=== PATIENT | female | born 1990 | race African-American/Black ===

== ENCOUNTER 2016-10-06 17:15 | Emergency (ER) | payer OTHER ==
[~2016-10-06] VITALS: Ht 165.1 cm; Wt 61.2 kg
[2016-10-06 17:35] VITALS: BP 120/70
[2016-10-06] MEDS ORDERED: HYDR200T PO (17:51)
[2016-10-06] MEDS ORDERED: MYCO250C PO (17:52)
--- NOTE | 2016-10-06 18:36 | PHYS DOC ---
Past Medical History Past Medical History: Other Additional Past Medical Histor: Lupus. Past Surgical History: No Surgical History Alcohol Use: Occasionally Drug Use: None Adult General Chief Complaint Chief Complaint: TOE PROBLEM HPI HPI Patient is a 26 year old female who presents with right second toe pain that began a couple days ago. Patient denies any trauma. Review of Systems Review of Systems Constitutional: Denies fever or chills [] Eyes: Denies change in visual acuity, redness, or eye pain [] Musculoskeletal: Right second toe pain Integument: Denies rash or skin lesions [] Neurologic: Denies headache, focal weakness or sensory changes [] Endocrine: Denies polyuria or polydipsia [] Allergies Allergies Allergies Coded Allergies Type Severity Reaction Last Updated Verified No Known Drug Allergies 10/06/16 No Physical Exam Physical Exam Constitutional: Well developed, well nourished, no acute distress, non-toxic appearance. [] HENT: Normocephalic, atraumatic, bilateral external ears normal, oropharynx moist, no oral exudates, nose normal. [] Skin: Warm, dry, no erythema, no rash. [] Back: No tenderness, no CVA tenderness. [] Extremities: Right second toe with no obvious deformity. No edema and no ecchymosis. No tenderness on exam. Full range of motion to the right foot and toes. +2 right pedal pulse. Cap refill less than 2 seconds the right lower extremity. Sensation intact to the right lower extremity. Neurologic: Alert and oriented X 3, normal motor function, normal sensory function, no focal deficits noted. [] Psychologic: Affect normal, judgement normal, mood normal. [] Current Patient Data Vital Signs Vital Signs Date Time Temp Pulse Resp B/P (MAP) Pulse Ox O2 Delivery O2 Flow Rate FiO2 10/06/16 17:35 98.2 87 16 100 Room Air 98.2 EKG EKG [] Radiology/Procedures Radiology/Procedures [] Course & Med Decision Making Course & Med Decision Making Pertinent Labs and Imaging studies reviewed. (See chart for details) Patient is in the ED with right second toe pain with no known injury. X-rays of the right foot interpreted by Dr. Grewal 3 views were negative for any acute findings. Discharged with instructions to ice and elevate the extremity. Take Tylenol Motrin for pain. Follow-up with orthopedic doctor in 1-2 weeks as needed. Dragon Disclaimer Dragon Disclaimer This electronic medical record was generated, in whole or in part, using a voice recognition dictation system. Departure Departure Impression: Primary Impression: Toe pain, right Disposition: 01 HOME, SELF-CARE Condition: STABLE Referrals: UNKNOWN PCP NAME (PCP) JACIEL YOUNG II, MD Follow-up in one week Patient Instructions: Musculoskeletal Pain Additional Instructions: You were seen for musculoskeletal pain of the right toe. Ice and elevate the extremity. Take Tylenol/ Motrin for pain. Follow-up with the provided orthopedic doctor in one week if pain continues. BONNIE GARCIA POWER PLANT MANAGER Oct 06, 2016 18:36
--- NOTE | 2016-10-07 08:48 | RAD ---
Right foot, 3 views, 10/06/2016: History: Foot pain No fracture or dislocation is identified. The soft tissues are unremarkable. IMPRESSION: No acute right foot abnormality is detected.
== END 2016-10-06 18:51 | disposition home or self-care (01) ==
LOC: ER 17:15
DX: M79.674 Pain in right toe(s) (principal); M32.9 Systemic lupus erythematosus, unspecified
CPT/HCPCS: 73630; 99284

== ENCOUNTER 2016-11-14 06:48 | Emergency (ER) | payer OTHER ==
[~2016-11-14] VITALS: Ht 162.6 cm; Wt 61.2 kg
[2016-11-14 06:48] VITALS: BP 142/87
[~2016-11-14 06:48] MED LIST: HYDR200T PO; MYCO250C PO
[2016-11-14] MEDS ORDERED: AMOX875T PO (07:32)
[2016-11-14] MEDS ORDERED: BENZ100C PO (07:33)
--- NOTE | 2016-11-14 07:33 | PHYS DOC ---
Past Medical History Past Medical History: Other Additional Past Medical Histor: Lupus. Past Surgical History: No Surgical History Alcohol Use: None Drug Use: None Adult General Chief Complaint Chief Complaint: SORE THROAT HPI HPI Patient is a 26 year old female with no significant medical history who presents with a sore throat and a cough 4 days, and bilateral ear pain since yesterday. Patient denies any fever. Review of Systems Review of Systems Constitutional: See history of present illness Eyes: Denies change in visual acuity, redness, or eye pain [] HENT: sore throat [] Respiratory: cough Cardiovascular: No additional information not addressed in HPI [] GI: Denies abdominal pain, nausea, vomiting, bloody stools or diarrhea [] : Denies dysuria or hematuria [] Musculoskeletal: Denies back pain or joint pain [] Integument: Denies rash or skin lesions [] Neurologic: Denies headache, focal weakness or sensory changes [] Endocrine: Denies polyuria or polydipsia [] Allergies Allergies Allergies Coded Allergies Type Severity Reaction Last Updated Verified No Known Drug Allergies 10/06/16 No Physical Exam Physical Exam Constitutional: Well developed, well nourished, no acute distress, non-toxic appearance. [] HENT: Normocephalic, atraumatic, bilateral external ears normal, oropharynx moist, no oral exudates, nose normal. [] Bilateral ear canals are impacted with cerumen, both TMs can be slightly visualized and they appear very erythematous. Posterior pharynx is injected.. Eyes: PERRLA, EOMI, conjunctiva normal, no discharge. [] Neck: Normal range of motion, no tenderness, supple, no stridor. [] Cardiovascular:Heart rate regular rhythm, no murmur [] Lungs & Thorax: Bilateral breath sounds clear to auscultation [] Abdomen: Bowel sounds normal, soft, no tenderness, no masses, no pulsatile masses. [] Skin: Warm, dry, no erythema, no rash. [] Back: No tenderness, no CVA tenderness. [] Extremities: No tenderness, no cyanosis, no clubbing, ROM intact, no edema. [] Neurologic: Alert and oriented X 3, normal motor function, normal sensory function, no focal deficits noted. [] Psychologic: Affect normal, judgement normal, mood normal. [] Current Patient Data Vital Signs Vital Signs Date Time Temp Pulse Resp B/P (MAP) Pulse Ox O2 Delivery O2 Flow Rate FiO2 11/14/16 06:48 98.1 93 16 99 Room Air 98.1 EKG EKG [] Radiology/Procedures Radiology/Procedures [] Course & Med Decision Making Course & Med Decision Making Pertinent Labs and Imaging studies reviewed. (See chart for details) Patient has bilateral otitis media, cough and pharyngitis. She was discharged with amoxicillin. She is also discharged with Tessalon Perles. She also has cerumen impaction, discharged with Debrox. Tylenol Motrin for pain or fever. Follow-up with PCP in one to 2 weeks. Dragon Disclaimer Dragon Disclaimer This electronic medical record was generated, in whole or in part, using a voice recognition dictation system. Departure Departure Impression: Primary Impression: Otitis media Additional Impressions: Cough Pharyngitis, acute Impacted cerumen of both ears Disposition: HOME, SELF-CARE Condition: STABLE Referrals: UNKNOWN PCP NAME (PCP) follow up with your doctor in one week Patient Instructions: Cerumen Impaction-SportsMed, Cough, Adult, Otitis Media, Adult, Viral and Bacterial Pharyngitis Additional Instructions: You were seen for bilateral ear infections, coughing, and a sore throat. Please complete your antibiotics. You also have earwax in both the ears. Please buy [id number] Debrox and use it to clear your ears. Take Tylenol every 4 hours and Motrin every 6 hours as needed for pain. Follow-up with your doctor in 1-2 weeks. Scripts Benzonatate (TESSALON PERLE) 100 Mg Capsule 1 CAP PO TID, #30 CAP Prov: BONNIE GARCIA APRN 11/14/16 Amoxicillin (AMOXICILLIN) 875 Mg Tablet 1 TAB PO BID, #20 TAB Prov: BONNIE GARCIA APRN 11/14/16 Problem Qualifiers Primary Impression: Otitis media Otitis media type: other nonsuppurative Chronicity: acute Laterality: bilateral Recurrence: not specified as recurrent Qualified Codes: H65.193 - Other acute nonsuppurative otitis media, bilateral Additional Impressions: Pharyngitis, acute Pharyngitis/tonsillitis etiology: unspecified etiology Qualified Codes: J02.9 - Acute pharyngitis, unspecified BONNIE GARCIA CAR RENTAL SERVICE ATTENDANT Nov 14, 2016 07:33
== END 2016-11-14 07:41 | disposition home or self-care (01) ==
LOC: ER 06:48
DX: H65.193 Other acute nonsuppurative otitis media, bilateral (principal); J02.9 Acute pharyngitis, unspecified; H61.23 Impacted cerumen, bilateral; M32.9 Systemic lupus erythematosus, unspecified
CPT/HCPCS: 99283

== ENCOUNTER 2016-12-02 19:21 | Emergency (ER) | payer OTHER ==
[~2016-12-02] VITALS: Ht 162.6 cm; Wt 61.2 kg
[~2016-12-02 19:21] MED LIST changes: +AMOX875T PO; +BENZ100C PO
[2016-12-02 19:40] VITALS: BP 146/85
[2016-12-02] MEDS ORDERED: FLUC150T PO (19:58)
[2016-12-02] MEDS ORDERED: BENZ100C PO (19:58)
[2016-12-02] MEDS ORDERED: AMOX1TAB61 PO (19:58)
--- NOTE | 2016-12-02 19:58 | PHYS DOC ---
Past Medical History Past Medical History: Other Additional Past Medical Histor: Lupus. Past Surgical History: No Surgical History Alcohol Use: None Drug Use: None Adult General Chief Complaint Chief Complaint: SORE THROAT HPI HPI Patient is a 26 year old female presents to the emergency department stating that she was seen here on 11/14/16. She was diagnosed with the ear infection as well as pharyngitis. Patient states she has taken the amoxicillin as prescribed and he completed at approximately the 20th. She states that she was feeling better however she has started to have cough congestion and maxillary sinus pressure. She denies fever, chills or any nausea vomiting. She does state that she's had a cough. Review of Systems Review of Systems Constitutional: Denies fever or chills [] Eyes: Denies change in visual acuity, redness, or eye pain [] HENT: Denies nasal congestion or sore throat. Complaint of maxillary sinus pressure Respiratory: Denies cough or shortness of breath [] Cardiovascular: No additional information not addressed in HPI [] GI: Denies abdominal pain, nausea, vomiting, bloody stools or diarrhea [] : Denies dysuria or hematuria [] Musculoskeletal: Denies back pain or joint pain [] Integument: Denies rash or skin lesions [] Neurologic: Denies headache, focal weakness or sensory changes [] Endocrine: Denies polyuria or polydipsia [] Allergies Allergies Allergies Coded Allergies Type Severity Reaction Last Updated Verified No Known Drug Allergies 10/06/16 No Physical Exam Physical Exam Constitutional: Well developed, well nourished, no acute distress, non-toxic appearance. [] HENT: Normocephalic, atraumatic, bilateral external ears normal, oropharynx moist, no oral exudates, nose normal. Bilateral tympanic membranes appear to be normal. Throat with postnasal drip noted. No redness no erythematous or exudate noted. Patient with maxillary sinus tenderness. Eyes: PERRLA, EOMI, conjunctiva normal, no discharge. [] Neck: Normal range of motion, no tenderness, supple, no stridor. [] Cardiovascular:Heart rate regular rhythm, no murmur [] Lungs & Thorax: Bilateral breath sounds clear to auscultation [] Skin: Warm, dry, no erythema, no rash. [] Extremities: No tenderness, no cyanosis, no clubbing, ROM intact, no edema. [] Neurologic: Alert and oriented X 3, normal motor function, normal sensory function, no focal deficits noted. [] Psychologic: Affect normal, judgement normal, mood normal. [] Current Patient Data Vital Signs Vital Signs Date Time Temp Pulse Resp B/P (MAP) Pulse Ox O2 Delivery O2 Flow Rate FiO2 12/02/16 19:40 99.0 96 20 99 Room Air 99.0 EKG EKG [] Radiology/Procedures Radiology/Procedures [] Course & Med Decision Making Course & Med Decision Making Pertinent Labs and Imaging studies reviewed. (See chart for details) Patient will be discharged with Augmentin. She also states that she gets yeast infection she'll be provided with a prescription for Diflucan. She'll be provided with a work note for one day. Recommended Sudafed and Mucinex over-the- counter instructed by camper assembler. Patient was encouraged to use Tylenol and ibuprofen for fever chills or generalized body aches and discomfort. Recommended plenty of fluids. Recommended following up with a primary care physician in next 3-5 days. Patient was provided with signs and symptoms to return back to emergency department. Patient agrees with discharge instructions treatment regimens and follow-up recommendations. All questions and concerns have been answered at patient's bedside. [] Dragon Disclaimer Dragon Disclaimer This electronic medical record was generated, in whole or in part, using a voice recognition dictation system. Departure Departure Impression: Primary Impression: Sinusitis Disposition: 01 HOME, SELF-CARE Condition: STABLE Referrals: UNKNOWN PCP NAME (PCP) Patient Instructions: Sinusitis, [id number] Additional Instructions: Activity as tolerated. Medication as prescribed. Sudafed and Mucinex DM [id number] instructed by camper assembler. Tylenol or ibuprofen for pain and discomfort, or fever. Drink plenty of fluids. Follow-up the primary care physician next 3-5 days. Return back to emergency prior signs symptoms of become worse. Scripts Benzonatate (TESSALON PERLE) 100 Mg Capsule 1 CAP PO TID, #30 CAP Prov: GAVI ONTIVEROS APRN 12/02/16 Fluconazole (DIFLUCAN) 150 Mg Tablet 1 TAB PO ONCE, #1 TAB 1 Refill Prov: GAVI ONTIVEROS APRN 12/02/16 Amoxicillin/Potassium Clav (AUGMENTIN 875-125 TABLET) 1 Each Tablet 1 TAB PO BID, #20 TAB Prov: GAVI ONTIVEROS APRN 12/02/16 Problem Qualifiers Primary Impression: Sinusitis Sinusitis location: maxillary Chronicity: unspecified Qualified Codes: J32.0 - Chronic maxillary sinusitis GAVI ONTIVEROS APRN Dec 02, 2016 19:58
== END 2016-12-02 20:45 | disposition home or self-care (01) ==
LOC: ER 19:21
DX: J32.0 Chronic maxillary sinusitis (principal); M32.9 Systemic lupus erythematosus, unspecified
CPT/HCPCS: 99283